=== PATIENT | female | born 1985 | race Caucasian/White ===

== ENCOUNTER → 2018-09-22 | Outpatient (CLI) | payer OTHER ==
--- NOTE | 2018-09-22 21:02 | XR ---
EXAMINATION TYPE: XR knee complete LT DATE OF EXAM: 09/22/2018 COMPARISON: NONE HISTORY: Pain TECHNIQUE: Four views are submitted. FINDINGS: Joint spaces are preserved. Osseous structures are intact. No acute fracture seen. Small suprapate llar joint effusion. IMPRESSION: 1. No acute fracture or dislocation. There is a small suprapatellar bursal fluid collection. If there is concern for internal derangement of the knee correlate with MRI.
== END | disposition home or self-care (01) ==
LOC: RADXRYALE 15:20
PROVIDERS: ATTEND Family Medicine
DX: M25.462 Effusion, left knee (principal)

== ENCOUNTER → 2020-03-25 | Outpatient (CLI) | payer OTHER ==
--- NOTE | 2020-03-25 13:48 | XR ---
EXAMINATION TYPE: XR hand complete RT DATE OF EXAM: 03/25/2020 CLINICAL HISTORY: Right hand pain and swelling after jamming hand 2 days ago TECHNIQUE: Frontal, lateral and oblique images of the right hand are obtained. COMPARISON: None. FINDINGS: There is mildly displaced obliquely oriented fracture of the fifth digit mid and proximal metacarpal, which appears to be extending to the carpometacarpal joint. No angulation. Mild associate d soft tissue swelling of the lateral hand. No dislocation. There are subchondral cystic changes of t he carpal bones. Normal osseous mineralization. IMPRESSION: Mildly displaced oblique fracture of the proximal/mid fifth metacarpal, likely extending to the carpometacarpal joint.
== END | disposition home or self-care (01) ==
LOC: RADXRYALE 10:03
PROVIDERS: ATTEND Family Medicine
DX: S62.326A Displaced fracture of shaft of fifth metacarpal bone, right hand, initial encounter for closed fracture (principal)